=== PATIENT | male | born 1955 | race African-American/Black ===

== ENCOUNTER 2025-03-15 00:13 | Inpatient (IN) | payer MEDICARE, MEDICAID ==
[~2025-03-15] VITALS: Ht 182.9 cm; Wt 120.8 kg
[2025-03-15] MEDS: FUROSEMIDE 40MG/4ML VIAL IVP ONE (01:31)
[2025-03-15 01:35] LABS: BASOPHILS % 0.3 % (0.0-2.0); EOSINOPHILS % 1.1 % (0.0-5.0); HEMATOCRIT. 42.5 % (42.0-52.0); HEMOGLOBIN. 13.5 g/dL (14.0-18.0); LYMPHOCYTES % 17.8 % (20.0-50.0); MEAN PLATELET VOLUME 8.7 fl (7.4-10.4); MONOCYTES % 8.6 % (2.0-8.0); NEUTROPHILS % 72.2 % (40.0-76.0); PLATELET 149 x1000/uL (130-400); RED BLOOD CELL COUNT 4.18 mill/uL (4.7-6.1); RED CELL DISTRIBUTION WIDTH 15.8 % (11.6-14.6)
[2025-03-15 01:45] LABS: CREATININE 2.0 mg/dL (0.6-1.3); UREA NITROGEN BLOOD 32 mg/dL (9-23)
[2025-03-15 01:46] LABS: PROTEIN TOTAL 7.2 g/dL (6.0-8.3)
[2025-03-15 01:47] LABS: ASPARTATE AMINOTRANSFERASE 31 IU/L (<34); BILIRUBIN DIRECT 0.4 mg/dL (<=3.0)
[2025-03-15 01:48] LABS: BILIRUBIN TOTAL 1.0 mg/dL (0.1-1.0)
[2025-03-15 02:10] VITALS: PULSE 92; RESP 22; O2SAT 94
[2025-03-15] MEDS: ALBUTEROL (0.083%) 2.5MG/3ML NEB HHN ONE (02:15)
[2025-03-15] MEDS: IPRATROPIUM BROMIDE (0.02%) 0.5MG/2.5ML NEB HHN ONE (02:16)
[2025-03-15 02:39] LABS: TROPONIN I HIGH SENSITIVITY 89 ng/L (3.0-53)
[2025-03-15] MEDS: APIXABAN 5 MG TABLET PO STA (02:53)
[2025-03-15] MEDS ORDERED: ACETAMINOPHEN 325MG TABLET PO PRN (04:00)
[2025-03-15] MEDS ORDERED: ONDANSETRON HCL 4MG/2ML INJ IV PRN (04:00)
[2025-03-15] MEDS ORDERED: DOCUSATE SODIUM 100MG CAPSULE PO PRN (04:00)
[2025-03-15] MEDS ORDERED: GUAIFENESIN 200MG/10ML SUGAR FREE UDC PO PRN (04:00)
[2025-03-15 04:44] VITALS: BP 124/78; PULSE 86; RESP 19; TEMP 36.4736
[2025-03-15] MEDS ORDERED: ACET650S27 RC (05:13)
[2025-03-15] MEDS ORDERED: TOPUD PO (05:13)
[2025-03-15] MEDS ORDERED: APIX5TAB PO (05:14)
[2025-03-15] MEDS ORDERED: ATOR40TA70 PO (05:18)
[2025-03-15] MEDS ORDERED: LOSA25TA26 PO (05:18)
[2025-03-15] MEDS ORDERED: CLON-493 PO (05:18)
[2025-03-15] MEDS ORDERED: MULT-647 PO (05:18)
[2025-03-15] MEDS ORDERED: COLL30OI TP (05:18)
[2025-03-15] MEDS ORDERED: IPRA4AER INH (05:18)
[2025-03-15] MEDS ORDERED: DOCU100T PO (05:18)
[2025-03-15] MEDS ORDERED: PANT40SU PO (05:18)
[2025-03-15] MEDS ORDERED: FURO40TA5 PO (05:18)
[2025-03-15] MEDS ORDERED: EMPA10TA PO (05:18)
[2025-03-15] MEDS ORDERED: IOHEXOL-350 100 ML BOTTLE ONE (06:06)
[2025-03-15 08:00] VITALS: BP 148/85; PULSE 76; RESP 19; TEMP 36.8; O2SAT 92
[2025-03-15] MEDS: EMPAGLIFLOZIN 10MG TABLET PO SCH (08:59)
[2025-03-15] MEDS: ASPIRIN 81MG TABLET PO SCH (09:00)
[2025-03-15] MEDS ORDERED: FUROSEMIDE 40MG/4ML VIAL IV SCH (09:00)
[2025-03-15] MEDS ORDERED: LIDOCAINE HCL 1% 10 MG/ML 10ML VIAL ONE (11:14)
[2025-03-15 12:00] VITALS: BP 139/84; PULSE 61; RESP 15; TEMP 36.4; O2SAT 93
[2025-03-15] MEDS: FUROSEMIDE 40MG/4 ML UDC PO SCH (12:00)
[2025-03-15] MEDS: FUROSEMIDE 40MG/4ML VIAL IV SCH (12:30)
[2025-03-15 16:00] VITALS: BP 116/90; PULSE 65; RESP 15; TEMP 36.7; O2SAT 92
[2025-03-15 20:00] VITALS: BP 134/85; PULSE 65; RESP 22; TEMP 36.2; O2SAT 96
[2025-03-15] MEDS: ATORVASTATIN CALCIUM 40MG TABLET PO SCH (21:00)
[2025-03-15] MEDS: APIXABAN 5 MG TABLET PO SCH (21:00)
[2025-03-15] MEDS: IPRATROPIUM/ALBUTEROL 0.5-3(2.5)MG/3ML NEB HHN SCH (21:20)
[2025-03-16] VITALS: BP 127/79; PULSE 66; RESP 21; TEMP 36.4; O2SAT 98
[2025-03-16 01:10] VITALS: PULSE 76; RESP 24; O2SAT 92
[2025-03-16 11:16] LABS: CLARITY URINE CLEAR (CLEAR); COLOR URINE YELLOW (YELLOW); GLUCOSE URINE 2+ (NEGATIVE); KETONES URINE NEGATIVE (NEGATIVE); LEUKOCYTE ESTERASE URINE NEGATIVE (NEGATIVE); NITRITE URINE NEGATIVE (NEGATIVE); OCCULT BLOOD URINE NEGATIVE (NEGATIVE); PH URINE 5.5 (4.5-8.0); PROTEIN URINE 1+ (NEGATIVE); SPECIFIC GRAVITY URINE 1.016 (1.005-1.030); UROBILINOGEN URINE 0.2 E.U./dL (0.2-1.0)
[2025-03-16 11:37] LABS: RBC URINE NONE SEEN /hpf (0-2); WBC URINE 0-2 /hpf (0-2)
[2025-03-16 11:38] LABS: BACTERIA URINE TRACE
[2025-03-16 11:39] LABS: SQUAMOUS EPITHELIAL CELL URINE NONE SEEN /lpf (RARE/1+)
[2025-03-16 12:02] VITALS: PULSE 69; RESP 21; O2SAT 93
[2025-03-16] MEDS: IPRATROPIUM/ALBUTEROL 0.5-3(2.5)MG/3ML NEB HHN PRN (12:02)
[2025-03-16 13:11] LABS: *AMPHETAMINES SCREEN URINE NEGATIVE (NEGATIVE)
[2025-03-16 13:12] LABS: *BENZODIAZEPINES SCREEN URINE NEGATIVE (NEGATIVE)
[2025-03-16 13:14] LABS: *BARBITURATES SCREEN URINE NEGATIVE (NEGATIVE); *COCAINE SCREEN URINE NEGATIVE (NEGATIVE); CANNABINOID URINE SCREEN NEGATIVE (NEGATIVE); ECSTASY MDMA SCREEN URINE NEGATIVE (NEGATIVE); METHADONE URINE SCREEN NEGATIVE (NEGATIVE); OPIATES URINE SCREEN NEGATIVE (NEGATIVE); PHENCYCLIDINE URINE SCREEN NEGATIVE (NEGATIVE)
[2025-03-16 16:00] VITALS: BP 132/84; PULSE 61; RESP 16; TEMP 36.5; O2SAT 97
[2025-03-16] MEDS: CEFTRIAXONE 1GM/50ML 50 ML IV SCH (18:08)
[2025-03-16 20:16] VITALS: PULSE 76; RESP 20; O2SAT 96
[2025-03-16] MEDS: ACETAMINOPHEN 325MG TABLET PO PRN (23:20)
[2025-03-17] VITALS (9 sets, daily range): BP systolic 125–169; BP diastolic 71–100; PULSE 63–107; RESP 16–21; TEMP 36.3–36.7; O2SAT 92–98
[2025-03-17 08:28] LABS: CREATININE 1.6 mg/dL (0.6-1.3)
[2025-03-17 08:29] LABS: UREA NITROGEN BLOOD 28 mg/dL (9-23)
[2025-03-17 08:31] LABS: PHOSPHORUS 3.8 mg/dL (2.5-4.9); PLATELET 136 x1000/uL (130-400); RED BLOOD CELL COUNT 4.64 mill/uL (4.7-6.1); RED CELL DISTRIBUTION WIDTH 15.7 % (11.6-14.6)
[2025-03-17] MEDS: CLONIDINE 0.1MG TABLET PO PRN (12:10)
[2025-03-17] MEDS ORDERED: FURO80TA87 MT (16:30)
[2025-03-17] MEDS ORDERED: EMPA10TA PO (16:30)
[2025-03-17] MEDS ORDERED: ASPI-1160 PO (16:30)
[2025-03-17] MEDS ORDERED: APIX5TAB PO (16:30)
[2025-03-17] MEDS ORDERED: LIP40 PO (16:30)
== END 2025-03-17 22:22 | DRG 189 ==
LOC: ER 00:13 → 6WST 02:32 → EDBEDREQ 02:40 → EDBEDREQTM 02:40 → ENRESERV 03:45
PROVIDERS: ADMIT Internal Medicine; ATTEND Internal Medicine
PROC: 4A023N6 Measurement of Cardiac Sampling and Pressure, Right Heart, Percutaneous Approach (ICD-10-PCS; principal; 2025-03-15)
PROC: 05H933Z Insertion of Infusion Device into Right Brachial Vein, Percutaneous Approach (ICD-10-PCS; 2025-03-15)
DX: J96.01 Acute respiratory failure with hypoxia (principal); I27.20 Pulmonary hypertension, unspecified; I82.513 Chronic embolism and thrombosis of femoral vein, bilateral; I50.32 Chronic diastolic (congestive) heart failure; L97.819 Non-pressure chronic ulcer of other part of right lower leg with unspecified severity; E11.22 Type 2 diabetes mellitus with diabetic chronic kidney disease; D53.9 Nutritional anemia, unspecified; N17.9 Acute kidney failure, unspecified; I13.0 Hypertensive heart and chronic kidney disease with heart failure and stage 1 through stage 4 chronic kidney disease, or unspecified chronic kidney disease; J44.9 Chronic obstructive pulmonary disease, unspecified; N18.30 Chronic kidney disease, stage 3 unspecified; E66.01 Morbid (severe) obesity due to excess calories; F03.90 Unspecified dementia, unspecified severity, without behavioral disturbance, psychotic disturbance, mood disturbance, and anxiety; Z95.828 Presence of other vascular implants and grafts; E11.621 Type 2 diabetes mellitus with foot ulcer; E11.51 Type 2 diabetes mellitus with diabetic peripheral angiopathy without gangrene; I25.10 Atherosclerotic heart disease of native coronary artery without angina pectoris; I87.8 Other specified disorders of veins; E78.00 Pure hypercholesterolemia, unspecified; F17.210 Nicotine dependence, cigarettes, uncomplicated; I45.10 Unspecified right bundle-branch block; K21.9 Gastro-esophageal reflux disease without esophagitis; Z95.5 Presence of coronary angioplasty implant and graft; Z79.899 Other long term (current) drug therapy; Z86.711 Personal history of pulmonary embolism; Z68.36 Body mass index [BMI] 36.0-36.9, adult
CPT/HCPCS: 36415; 36573; 71045; 71275; 80048; 80076; 80305; 81003; 82553; 83036; 83605; 83735; 83880; 84100; 84145; 84484; 85025; 85027; 85379; 93005; 93306; 93970; 94070; 94640; 94664; 94760; 96374; 99285; C1725; J0696; J1938; J1940; J2003; Q9967